=== PATIENT | female | born 1950 | race Caucasian/White ===

== ENCOUNTER 2016-09-26 | Outpatient (CLI) | payer MEDICARE, MEDICAID | END 2016-09-26 15:42 | disposition EMS.NT ==

== ENCOUNTER 2016-12-27 01:29 | Outpatient (CLI) | payer MEDICARE, MEDICAID | END 2016-12-27 01:30 | disposition critical access hospital (66) | LOC: EMS 01:29 | PROVIDERS: ATTEND Surgery | DX: R07.9 Chest pain, unspecified (principal) | CPT/HCPCS: A0425; A0429 ==

== ENCOUNTER 2016-12-27 01:35 | Emergency (ER) | payer MEDICARE, MEDICAID ==
[2016-12-27] MEDS ORDERED: MAG HYDROX/AL HYDROX/SIMETH 30 ML UDC PO STA (02:50)
[2016-12-27] MEDS ORDERED: LIDOCAINE VISCOUS 2% 15 ML UDC MM STA (02:50)
[2016-12-27] MEDS ORDERED: PHENobarb/HYOSCY/ATROPINE/SCOP 5 ML SYRINGE PO STA (02:50)
[2016-12-27] MEDS ORDERED: MAG HYDROX/AL HYDROX/SIMETH 30 ML UDC ONE (02:53)
[2016-12-27] MEDS ORDERED: PHENobarb/HYOSCY/ATROPINE/SCOP 5 ML SYRINGE PO ONE (02:53)
[2016-12-27] MEDS ORDERED: LIDOCAINE VISCOUS 2% 15 ML UDC MM ONE (02:53)
[2016-12-27] MEDS ORDERED: ACETAMINOPHEN/CODEINE 300 MG/30 MG TABLET PO STA (05:54)
[2016-12-27] MEDS ORDERED: ONDANSETRON ODT 4 MG TABLET TL STA (06:04)
[2016-12-27] MEDS ORDERED: ACETAMINOPHEN/CODEINE 300 MG/30 MG TABLET PO ONE (06:05)
[2016-12-27] MEDS ORDERED: ONDANSETRON ODT 4 MG TABLET ONE (06:06)
== END 2016-12-27 08:48 | disposition home or self-care (01) ==
DX: R07.9 Chest pain, unspecified (principal); I10 Essential (primary) hypertension; E78.00 Pure hypercholesterolemia, unspecified; G35 Multiple sclerosis; Z86.718 Personal history of other venous thrombosis and embolism; K21.9 Gastro-esophageal reflux disease without esophagitis; M79.7 Fibromyalgia
CPT/HCPCS: 36415; 71020; 80053; 83690; 84484; 85025; 93005; 93010; 99284; A9270; Q0162

== ENCOUNTER 2016-12-28 17:53 | Outpatient (CLI) | payer MEDICARE, MEDICAID | END 2016-12-28 17:54 | disposition critical access hospital (66) | LOC: EMS 17:53 | PROVIDERS: ATTEND Surgery | DX: I46.9 Cardiac arrest, cause unspecified (principal) | CPT/HCPCS: A0425; A0433 ==

== ENCOUNTER 2016-12-28 17:57 | Inpatient (IN) | payer MEDICARE, MEDICAID ==
[2016-12-28 18:26] LABS: VBG BASE EXCESS -28.6 mmol/L (-2 - +2); VBG OXYGEN SATURATION 43.7 % (60-80); VBG PH 6.7 (7.31-7.41); VBG TOTAL CO2 10.3 mmol/L (24-29)
[2016-12-28 18:34] LABS: BASOPHILS % (AUTO) 0.1 %; EOSINOPHILS % (AUTO) 0.9 %; HCT - HEMATOCRIT 34.4 % (37.0-47.0); HGB - HEMOGLOBIN 9.6 g/dL (12.0-16.0); LYMPHOCYTES % (AUTO) 22.8 %; MEAN CORPUSCULAR HEMOGLOBIN 26.9 pg (27.0-31.0); MEAN CORPUSCULAR VOLUME 96.1 fL (81.0-99.0); MONOCYTES % (AUTO) 4.5 %; NEUTROPHILS % (AUTO) 71.7 %; RED BLOOD COUNT 3.58 10^6/uL (4.20-5.40); RED CELL DISTRIBUTION WIDTH 17.2 % (12.0-15.0); UNCORRECTED WHITE BLOOD COUNT 26.7 x10^3/uL
[2016-12-28] MEDS ORDERED: SODIUM BICARBONATE ABBOJECT 50 MEQ/50 ML SYRINGE ONE (18:36)
[2016-12-28 18:40] LABS: TROPONIN I 0.14 ng/mL (<0.49)
[2016-12-28 18:42] LABS: CREATINE KINASE MB 11.8 ng/mL (0.6-6.3)
[2016-12-28 18:49] LABS: ALBUMIN/GLOBULIN RATIO 0.8 (1.0-2.2); BILIRUBIN,TOTAL 0.7 mg/dL (0.2-1.0); CALCIUM 9.4 mg/dL (8.5-10.3); CREATININE 1.5 mg/dL (0.4-1.0); MAGNESIUM 2.6 mg/dL (1.7-2.8); POTASSIUM 4.5 mmol/L (3.5-5.0); TOTAL PROTEIN 5.5 g/dL (6.7-8.2)
[2016-12-28] MEDS ORDERED: DEXTROSE 5%-0.9% NACL 1,000 ML IV ONE (18:50)
[2016-12-28] MEDS ORDERED: VASOPRESSIN 20 UNIT in DEXTROSE 5% 99 ML IVP ONE ×2 (18:52→19:32)
[2016-12-28] MEDS ORDERED: EPINEPHrine ABBOJECT 1 MG/10 ML SYRINGE IVP STA (18:52)
[2016-12-28] MEDS ORDERED: SODIUM BICARBONATE 150 MEQ in DEXTROSE 5% 1,000 ML IV STA (18:52)
[2016-12-28] MEDS ORDERED: SODIUM CHLORIDE 0.9% 2,000 ML IV ONE (18:54)
[2016-12-28 18:57] LABS: WHITE BLOOD COUNT 28.1 x10^3/uL (4.8-10.8)
--- NOTE | 2016-12-28 19:02 | ED Physician Documentation ---
PD HPI CPR - Stated complaint Stated Complaint: CPR - Chief complaint Chief Complaint: Critical Care - History obtained from History obtained from: EMS - History of Present Illness Timing - onset: Today (66-year-old woman with multiple sclerosis, wheelchair- bound. Was recently admitted to [facility] with of vomiting disorder, no specific cause was found. Seen here the other night with chest pain, enzymes were negative. Reportedly collapsed just prior to arrival and on sql server architect arrival was in asystole, she had approximately 6 rounds of epinephrine and CPR prior to arrival and at times they had a narrow complex with a pulse.) Review of Systems Unable to obtain: Intubated PD PAST MEDICAL HISTORY - Past Medical History Cardiovascular: Hypertension, High cholesterol, Deep vein thrombosis, Murmur, Arrhythmia Respiratory: None Neuro: Multiple sclerosis, Other Endocrine/Autoimmune: None GI: GERD, GI bleed, Hiatal hernia : None HEENT: None Psych: Depression Musculoskeletal: Fibromyalgia, Osteoporosis Derm: Rosacea - Past Surgical History Past Surgical History: Yes Ortho: Hip replacement - Present Medications Home Medications: Ambulatory Orders Medication Instructions Recorded Confirmed Amantadine HCl [Amantadine] 100 mg PO DAILY 04/14/13 07/10/16 Atenolol [Tenormin] 50 mg PO BID 04/14/13 07/10/16 Baclofen 20 mg PO QID 04/14/13 07/10/16 Esomeprazole Magnesium [Nexium] 40 mg PO DAILY 04/14/13 07/10/16 Ibuprofen [Motrin] 800 mg PO Q8H PRN 04/14/13 12/11/13 Lovastatin 100 mg PO DAILY 04/14/13 07/10/16 Acetaminophen/Cod 300/30 [Tylenol 1 each PO PRN 04/15/13 12/11/13 #3] Acetaminophen/Cod 300/30 [Tylenol 1 each PO Q4-6H PRN #20 tablet 07/10/16 #3] Doxycycline Hyclate 100 07/10/16 Propranolol [Inderal] 40 07/10/16 Ondansetron HCl [Zofran] 4 mg PO Q6HR PRN #14 tablet 12/27/16 - Allergies Allergies/Adverse Reactions: Allergies Allergy/AdvReac Type Severity Reaction Status Date / Time cephalexin [Cephalexin] Allergy Severe Emesis Verified 12/27/16 01:41 hydromorphone HCl * Allergy Hallucinati Verified 12/27/16 01:41 [From Dilaudid] ons morphine Allergy Hallucinati Verified 12/27/16 01:41 ons ciprofloxacin [From Cipro] AdvReac Severe Nausea Verified 12/27/16 01:41 clindamycin AdvReac Severe Nausea Verified 12/27/16 01:41 hydrocodone bitartrate * AdvReac Severe Emesis Verified 12/27/16 01:41 [From Vicodin] oxycodone [Oxycodone] AdvReac Severe Emesis Verified 12/27/16 01:41 tramadol HCl * [From Ultram] AdvReac Severe Dizziness Verified 12/27/16 01:41 - Social History Does the pt smoke?: No Smoking Status: Never smoker Does the pt drink ETOH?: No Does the pt have substance abuse?: No - Immunizations Immunizations are current?: Yes - POLST Patient has POLST: No PD ED PE NORMAL - Vitals Vital signs reviewed: Yes - General General: Other (GCS 3, intubated, pupils fixed and dilated, lots of blood in the oropharynx) - Cardiac Cardiac: Other (On bedside ultrasound she does have cardiac motion, suggestion of global hypokinesis, initially no pulses felt) - Respiratory Respiratory: Other (rhonchorous but symmetric) - Abdomen Abdomen: Non tender - Extremities Extremities: Other (venous stasis changes) - Neuro GCS Score: 3 Results - Vitals Vitals: Vital Signs - 24 hr 12/28/16 12/28/16 12/28/16 18:43 19:04 19:30 Heart Rate 132 H 98 99 Respiratory 22 Rate Blood Pressure 80/55 L 81/44 L 83/45 L Oxygen O2 Source Ambu bag - Labs Labs: Laboratory Tests 12/28/16 12/28/16 12/28/16 18:10 18:10 18:10 WBC 28.1 H RBC 3.58 L Hgb 9.6 L Hct 34.4 L MCV 96.1 MCH 26.9 L MCHC 28.0 L RDW 17.2 H Plt Count 153 MPV 9.0 Neut # SAP SECURITY ARCHITECT Lymph # SAP SECURITY ARCHITECT [place] # SAP SECURITY ARCHITECT Eos # SAP SECURITY ARCHITECT Baso # SAP SECURITY ARCHITECT Absolute Nucleated RBC SAP SECURITY ARCHITECT Total Counted 100 Band Neuts % (Manual) 9 Reactive Lymphs % (Man) 1 Metamyelocytes % 1 H Neutrophils # (Manual) 16.6 H Lymphocytes # (Manual) 9.3 H Monocytes # (Manual) 1.4 H Eosinophils # (Manual) 0.6 Nucleated RBCs 3 Differential Comment MANUAL DIFFERENTIAL Platelet Estimate NORMAL (130-450,000) Platelet Morphology NORMAL APPEARANCE RBC Morph Micro Appear 1+ POLYCHROMASIA VBG pH VBG pCO2 VBG pO2 VBG HCO3 VBG Total CO2 VBG O2 Saturation VBG Base Excess Sodium 145 Potassium 4.5 Chloride 110 Carbon Dioxide 13 L Anion Gap 22.0 H BUN 26 H Creatinine 1.5 H Estimated GFR (MDRD) 35 L Glucose 185 H Lactic Acid Calcium 9.4 Magnesium 2.6 Total Bilirubin 0.7 AST 433 H ALT 268 H Alkaline Phosphatase 169 H Total Creatine Kinase 328 H CK-MB (CK-2) 11.8 H Troponin I 0.14 B-Natriuretic Peptide Total Protein 5.5 L Albumin 2.5 L Globulin 3.0 Albumin/Globulin Ratio 0.8 L Lipase 636 H 12/28/16 12/28/16 12/28/16 18:10 18:10 18:10 WBC RBC Hgb Hct MCV MCH MCHC RDW Plt Count MPV Neut # Lymph # [place] # Eos # Baso # Absolute Nucleated RBC Total Counted Band Neuts % (Manual) Reactive Lymphs % (Man) Metamyelocytes % Neutrophils # (Manual) Lymphocytes # (Manual) Monocytes # (Manual) Eosinophils # (Manual) Nucleated RBCs Differential Comment Platelet Estimate Platelet Morphology RBC Morph Micro Appear VBG pH 6.700 L VBG pCO2 70.6 H VBG pO2 48.1 H VBG HCO3 8.1 L VBG Total CO2 10.3 L VBG O2 Saturation 43.7 L VBG Base Excess -28.6 L Sodium Potassium Chloride Carbon Dioxide Anion Gap BUN Creatinine Estimated GFR (MDRD) Glucose Lactic Acid > 10.0 H* Calcium Magnesium Total Bilirubin AST ALT Alkaline Phosphatase Total Creatine Kinase CK-MB (CK-2) Troponin I B-Natriuretic Peptide 109 H Total Protein Albumin Globulin Albumin/Globulin Ratio Lipase - Rads (name of study) 1v chest Radiology: EMP read contemporaneously (Moderate diffuse bilateral airspace disease, (presume aspiration), ET tube 2.5 cm above the jason) Procedures - General procedure General procedure: Arterial line was placed in the left brachial artery after ChloraPrep using real -time ultrasound guidance and sutured in place - Central Line Central Line Preparation: Unable to obtain consent Central line location: Right Femoral Central line type: Triple lumen Central line aftercare: Chlorhexidine disc placed, Other (NOT STERILE LINE - A CRASH LINE) PD MEDICAL DECISION MAKING - ED course ED course: She arrives with narrow complexes on the monitor but no palpable pulse. CPR was continued as well as multiple rounds of epinephrine. A central line was placed (she only had a IO in the right leg prehospital). The central line is not a sterile line, it is in the right femoral. It seemed to work fine. This was followed by a line in the left brachial artery, which actually showed a good waveform without CPR and initially we're getting pressures of 80/40 or so and she received after that some small doses of epinephrine IV while Levophed and then later vasopressin were hung. We also started a bicarbonate drip. Given her pH, fixed and dilated pupils, persistent severe pressor requirement her prognosis is very guarded. I don't think she is stable enough for transport off the [place]. Spoke with the hospitalist, Dr. Aquino for admission at 710 p.m. There was a question as to whether she was appropriate for this facility given her critical illness and necessity of the protocols in place, however again I don't think she is stable enough for transport at this juncture and her prognosis is very guarded and the family was made aware of this. - Critical Care Time(min): 68 Time Includes: Direct patient care, Review records, Reassess patient, Document care, Coordinate care, Medical consult, Family consult for tx dec Procedures included in critical care time: Peripheral IV Procedures excluded from critical care time: Central IV, Arterial cannulation, CPR Departure - Departure Disposition: 66 [facility] DC/Xfer Clinical Impression: Cardiac arrest Condition: Critical Discharge Date/Time: 12/28/16 20:09
[2016-12-28 19:03] LABS: PLATELET ESTIMATE, MANUAL NORMAL (130-450,000) (NORMAL)
[2016-12-28 19:05] LABS: PLATELET MORPHOLOGY NORMAL APPEARANCE (NORMAL)
[2016-12-28 19:08] LABS: BAND NEUTROPHILS % (MANUAL) 9 %; EOSINOPHILS % (MANUAL) 2 %; LYMPHOCYTES % (MANUAL) 32 %; NEUTROPHILS % (MANUAL) 50 %; TOTAL CELLS COUNTED 100
[2016-12-28 19:09] LABS: NP AUTO DIFFERENTIAL? YES
[2016-12-28 19:10] LABS: NP MAN DIFFERENTIAL? NO
--- NOTE | 2016-12-28 19:17 | XRAY Preliminary Report ---
Exam: XR Chest 1 View IMPRESSION: 1. Moderate diffuse bilateral airspace disease right greater than left. No pleural effusion or pneumo thorax. 2. Tip of the endotracheal tube located 2.5 cm above the jason, mildly low. [facility] SITE ID: [id number]
--- NOTE | 2016-12-28 19:19 | XRAY Report ---
EXAM: CHEST RADIOGRAPHY EXAM DATE: 12/28/2016 06:45 PM. CLINICAL HISTORY: Cpr. COMPARISON: None. TECHNIQUE: 1 view. FINDINGS: Lungs/Pleura: Moderate diffuse bilateral airspace disease right greater than left. No pleural effusio n or pneumothorax. Mediastinum: Within exam limitations, cardiomediastinal contour is normal. Other: Tip of the endotracheal tube located 2.5 cm above the jason, mildly low. IMPRESSION: 1. Moderate diffuse bilateral airspace disease right greater than left. No pleural effusion or pneumo thorax. 2. Tip of the endotracheal tube located 2.5 cm above the jason, mildly low. [facility] Referring Provider Line: [phone] SITE ID: [id number]
[2016-12-28] MEDS ORDERED: ALBUTEROL NEB 2.5 MG/3 ML INH PRN (19:34)
[2016-12-28] MEDS ORDERED: SODIUM CHLORIDE FLUSH 0.9% 10 ML SYRINGE IVP PRN (19:34)
[2016-12-28] MEDS ORDERED: ONDANSETRON 4 MG/2 ML VIAL IVP PRN (19:34)
[2016-12-28 19:42] VITALS: BP 75/42
--- NOTE | 2016-12-28 19:47 | HISTORY & PHYSICAL EXAMINATION ---
Chief Complaint - Chief Complaint Chief Complaint: ccardiac arrest, preceded by several days of vomiting.. History of Present Illness - Admitted From Admitted From:: emergency room - History Obtained From History obtained from: patient's daughter, and caregiver and the ER M.D. Exam Limitations: ,, - History of Present Illness HPI Comment/Other: [id number] female has reportedly been ill for about 2 weeks. She was recently hospitalized at [facility] in [facility], for persistent vomiting. It is reported that she was vomiting black material, and was being set up for upper and lower endoscopy. However her family reports that once it was discovered that she had been taking Pepto-Bismol, these were canceled. She was then sent home. she then presented to our emergency yesterday complaining of chest discomfort. ER evaluation was negative, and the patient was discharged to home. today, she continued to have vomiting at home, according to her visiting caregiver. He helped her into the bathroom, and then she fainted. He hit her lifeline, and then believed she was not breathing, so started CPR. professor of languages arrived in about 10 minutes, and took over CPR appearedddate it was reported that she had asystole. She received 6 rounds of epinephrine and CPR, followed by intubation, and did have return of circulation.iin the emergency room she received aggressive IV fluids, continued CPR, IV pressors. She had no purposeful neurologic function. hher daughter says that she did not look well thi She had been complaining of back pain and nausea. She was unaware of other specific complaints. Her mother had not reported fever or chills,, headaches or dizziness,, chest pain or shortness of breath, or dysuria. She did have ongoing nausea and vomiting. At the time of admission, she was requiring high-dose levo fed and vasopressin drips. initial blood gas showed severe acidosis. It was felt that she was to unstable to transfer to a higher level facility. Her daughter requested that she be kept here and stabilized, while she and the caregiver decided about longer term plans. Shortly after the patient was admitted, nursing staff was having a hard time getting her arterial line to read. The patient did have a good carotid pulse,, but accurate blood pressure readings could not be obtained. Shortly after admission, she became bradycardiac, with no palpable pulse. ROBYN RICO was called, and CPR resumed. She received approximately 3 rounds of epinephrine,, in addition to IV calcium and IV bicarbonate. She also had levo fed and vasopressin drips, as well as high-volume IV fluids. Initially he she has an agonal rhythm,, but after CPR, did show a few more regular complexes. However, she did not ever regain a pulse. Pupils remained fixed and dilated area. The code was then called by the ER Syeda past medical history: Multiple sclerosis, wheelchair-bound. Hyperlipidemia Fibromyalgia Osteoporosis Rosacea Chronic lower extremity edema Past history of DVT History of hypertension History of hip replacement Medications: Propranolol 40 mg Zofran 4 mg every 6 hours when necessary Lovastatin 100 mg daily Ibuprofen 800 mg every 8 hours when necessary Nexium 40 mg daily Doxycycline dose unknown Baclofen 20 mg 4 times a day Atenolol 50 mg twice a day Amantadine 100 mg daily Tylenol with Codeine, #3, every 4 hours when necessary allergies:ccephalexin, Dilaudid, morphine, ciprofloxacin,, clindamycin, hydrocodone, oxycodone, tramadol Family history: Her daughter reports the patient w Social history: She lived alone, but had a caregiver they visited [facility] a day. Her daughter visits often. She has not used tobacco, alcohol, lungs appear History - Past Medical History Cardiovascular: reports: Hypertension, High cholesterol, Deep vein thrombosis, Murmur, Arrhythmia Respiratory: reports: None Neuro: reports: Multiple sclerosis, Other Endocrine/Autoimmune: reports: None GI: reports: GERD, GI bleed, Hiatal hernia : reports: None HEENT: reports: None Psych: reports: Depression Musculoskeletal: reports: Fibromyalgia, Osteoporosis Derm: reports: Rosacea MRSA Hx?: No - Past Surgical History Ortho: reports: Hip replacement - POLST Patient has POLST: No Meds/Allgy - Home Medications Home Medications: Ambulatory Orders Medication Instructions Recorded Confirmed Amantadine HCl [Amantadine] 100 mg PO DAILY 04/14/13 07/10/16 Atenolol [Tenormin] 50 mg PO BID 04/14/13 07/10/16 Baclofen 20 mg PO QID 04/14/13 07/10/16 Esomeprazole Magnesium [Nexium] 40 mg PO DAILY 04/14/13 07/10/16 Ibuprofen [Motrin] 800 mg PO Q8H PRN 04/14/13 12/11/13 Lovastatin 100 mg PO DAILY 04/14/13 07/10/16 Acetaminophen/Cod 300/30 [Tylenol 1 each PO PRN 04/15/13 12/11/13 #3] Acetaminophen/Cod 300/30 [Tylenol 1 each PO Q4-6H PRN #20 tablet 07/10/16 #3] Doxycycline Hyclate 100 07/10/16 Propranolol [Inderal] 40 07/10/16 Ondansetron HCl [Zofran] 4 mg PO Q6HR PRN #14 tablet 12/27/16 - Allergies Allergies/Adverse Reactions: Allergies Allergy/AdvReac Type Severity Reaction Status Date / Time cephalexin [Cephalexin] Allergy Severe Emesis Verified 12/27/16 01:41 hydromorphone HCl * Allergy Hallucinati Verified 12/27/16 01:41 [From Dilaudid] ons morphine Allergy Hallucinati Verified 12/27/16 01:41 ons ciprofloxacin [From Cipro] AdvReac Severe Nausea Verified 12/27/16 01:41 clindamycin AdvReac Severe Nausea Verified 12/27/16 01:41 hydrocodone bitartrate * AdvReac Severe Emesis Verified 12/27/16 01:41 [From Vicodin] oxycodone [Oxycodone] AdvReac Severe Emesis Verified 12/27/16 01:41 tramadol HCl * [From Ultram] AdvReac Severe Dizziness Verified 12/27/16 01:41 Exam - Vital Signs Reviewed Vital Signs: Yes Vital Signs: Vital Signs x48h Pulse Resp BP Pulse Ox 12/28/16 19:42 97 75/42 L 99 12/28/16 19:30 99 83/45 L 12/28/16 19:04 98 81/44 L 12/28/16 18:43 132 H 22 80/55 L on exam, the patient was obtunded, and intubated. She had both coffee-ground and bloody emesis noted on her face and neck. Head: Normocephalic, atraumatic. Eyes: Pupils are markedly dilated, and fixed. Conjunctiva appear normal. Ears: TMs and canals are clear. Pharynx: ET tube is in place. Neck: Shows obvious lymphadenopathy, JVD, thyromegaly,, or bruits. Carotid pulses strong. Cardiac exam: Shows distant, but regular rate and rhythm. No murmurs, rubs,, gallops detected. Lungs: Breath sounds are very coarse and wet sounding, with wheezes heard throughout all lung beard, while on the ventilator. Abdomen: Is obese, and soft, with quiet bowel sounds. No obvious masses. There is a femoral line noted in the right groin. Extremities: Show some woody edema of the lower legs, and lichenified skin of her feet.. Neurologic: The patient is completely unresponsive, and pupils fixed and dilated. skin exam: No other rashes or other worrisome lesions are noted. Conclusion/Plan - Lab Results Fish Bones: 12/28/16 18:10 12/28/16 18:10 Other Lab Results: iinitial blood pressures from the emergency room shows 75/42. CBC differential shows 16,000 neut ABG, while bagged: Showed a pH of 6.7, CO2 70, PO2 48, bicarbonate, O2 saturation 43% ABG on the ventilator, SIMV 12: PH of 6.84, CO2 56, O2 85, bicarbonate 9, O2 saturation 84% Lactic acid was high at [place] AST, ALT, alkaline phosphatase are all elevated Albumin is low at 2.5 Total CK is elevated at 328, CK-MB is 11,, BNP is 109, lipase is elevated at 636 Chest x-ray shows the ET tube is 2.5 cm above There is moderate diffuse bilateral airspace disease,, right greater than left appear EKG from December 27: Showed sinus rhythm at a rate of 90,, with LVH,, but no obvious acute ischemic changes.. Issues/Core Measures - Anticipated LOS Anticipated Stay Length: 2 or more midnights - Issues Hospital Issues and Management Plan: #1. Cardiac. This patient presents with cardiac arrest at home. This may have been secondary to massive aspiration,, after ongoing vomiting.. She is status post CPR, with return of circulation,, followed by loss of blood pressure and an agonal rhythm.. A third round of CPR was performed, but was unsuccessful. -She had been admitted to the intensive care unit,, for stabilization, with IV fluids, IV pressors,, IV antibiotics,, and serial labs,, as well as ventilator support. approximately 30 minutes was spent with the patient's daughter and caregiver,, both prior to and after the patient's CPR events. we discussed living will and a CODE STATUS: And they wish that she remain focal at that time. approximately 90 minutes was spent today, reviewing the patient's records,, and providing direct critical care in the ICU on arrival. Sometime after admission, when she was deteriorating again, we were joined by the ER Syeda, who helps run the code.. the patient's family ultimately chose [facility],, and paperwork was signed.
[2016-12-28] MEDS ORDERED: PIPERACILLIN/TAZOBACTAM 3.375 GM in SODIUM CHLORIDE 0.9% MINIBAG 100 ML IV SCH ×5 (20:00→23:30)
[2016-12-28] MEDS ORDERED: LACTATED RINGERS 1,000 ML IV SCH (20:00)
--- NOTE | 2016-12-28 21:27 | ED Physician Documentation ---
ED Addendum - Addendum Addendum: 12/28/16 21:26 Called to the ICU to assist with the CODE BLUE of this patient. On arrival she was undergoing CPR with good waveform on the art line. She was receiving boluses of epinephrine. On pulse checks there was no pulse, there was no waveform on the arterial line, she had an agonal rhythm. We continued CPR and received several more rounds of medications. Hyperkalemia was considered and she was also given bicarbonate and calcium, all without return of spontaneous circulation and as time passed the agonal rhythm became wider and more bradycardic. And the code was terminated. Family at the bedside. 12/28/16 21:31
[2016-12-28] MEDS ORDERED: SODIUM CHLORIDE FLUSH 0.9% 10 ML SYRINGE IVP SCH (22:00)
[2016-12-28 22:43] LABS: ABG ANALYSIS TIME 2047; ABG HCO3 9.3 mmol/L (22.0-26.0); ABG PCO2 56 mmHg (34-45); ABG PO2 85 mmHg (80-100)
[2016-12-28 22:44] LABS: ABG BASE EXCESS -23.8 mmol/L (-2.0-3.0); ABG MODE OF VENTILATION SIMV; ABG O2 DEVICE VENTILATOR; ABG PEAK END EXPIRATORY PRESSU 5 cmH2O; ABG PRESSURE SUPPORT VENT 10 cmH2O; ABG RESPIRATORY RATE 12 b/min; ABG SATURATION PULSE OXIMETRY% 99 %; ABG SITE OF DRAW A-LINE
[2016-12-28 22:48] LABS: ABG OXYGEN SATURATION 84 % (94-98); ABG PH 6.84 (7.35-7.45)
--- NOTE | 2016-12-28 23:34 | ADVANCE CARE PLANNING NOTE ---
Advance Care Planning - Date/Time Date: 12/28/16 Time: 19:30 - Purpose of encounter Text: approximately 30 minutes was spent today, discussing the patient's terminal status with her daughter,, and subsequently with her caregiver. We reviewed the patient's wishes as they understood them, that she have full resuscitation.. However, after her third episode of CPR, which was unsuccessful,, and they were accepting of the patient's terminal state. I discussed with them that it appeared she had had a massive aspiration after vomiting at home, which likely caused a respiratory arrest,, followed by cardiac arrest. 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 the original plan, was to try to stabilize the patient enough,, to transfer her to a larger facility. Unfortunately, she declined rapidly. The family declined to call in a aircraft structural repairer. They ultimately decided on a home. - Parties in attendance Parties in attendance: The patient's daughter, Claudia,, and caregiver, Rohan - Subjective/Patient's story Subjective/Patient's story: the patient arrived with CPR in progress. Please see H&P for further details. - Goals of Care Goals of care determinations: the family wished to follow her wishes, so kept her a full code. This was ultimately unsuccessful. - Code Status Code Status: Attempt Resuscitation - Time Spent on Advance Care Planning Time spent on advance care plannin-40 minutes..from approximately 8:00 to 8:15,, and 9:00 to 9:15.
--- NOTE | 2016-12-28 23:39 | PROVIDER PROGRESS NOTE ---
Hospitalist Cross-cover Note - Cross-Cover Note Cross-Cover Note: ddeath note. This patient had fairly rapid decline after admission to the intensive care unit,, despite high dose levofed, vasopressin,, bicarbonate drip, IV fluids, ventilator support. A third round of CPR was performed,, but was unsuccessful.. the patient's daughter and caregiver were in attendance. They understood the situation, and did spend some time alone with the patient afterwards. [facility] was chosen.
[2016-12-29] MEDS ORDERED: PANTOPRAZOLE 40 MG VIAL IVP SCH (07:00)
[2016-12-29] MEDS ORDERED: ENOXAPARIN 40 MG/0.4 ML SYRINGE SUBQ SCH (09:00)
== END 2016-12-28 21:23 | disposition expired | DRG 297 ==
LOC: EDUNIT# → ED 17:57 → ICU 19:34
PROVIDERS: ADMIT Internal Medicine; ATTEND Internal Medicine
PROC: 5A1935Z Respiratory Ventilation, Less than 24 Consecutive Hours (ICD-10-PCS; principal; 2016-12-28)
DX: I46.9 Cardiac arrest, cause unspecified (principal); R40.2432 Glasgow coma scale score 3-8, at arrival to emergency department; E87.2 Acidosis; K92.0 Hematemesis; G35 Multiple sclerosis; E78.00 Pure hypercholesterolemia, unspecified; I10 Essential (primary) hypertension; I49.9 Cardiac arrhythmia, unspecified; E78.5 Hyperlipidemia, unspecified; M79.7 Fibromyalgia; F32.9 Major depressive disorder, single episode, unspecified; K21.9 Gastro-esophageal reflux disease without esophagitis; Z96.649 Presence of unspecified artificial hip joint; E66.9 Obesity, unspecified; Z99.3 Dependence on wheelchair; Z86.718 Personal history of other venous thrombosis and embolism; Z87.19 Personal history of other diseases of the digestive system; Z68.34 Body mass index [BMI] 34.0-34.9, adult
CPT/HCPCS: 36415; 36569; 71010; 80053; 82550; 82553; 82803; 83605; 83690; 83735; 83880; 84484; 85025; 85610; 85730; 87040; 92950; 94002; 96374; 96375; 99285; 99291